=== PATIENT | male | born 1995 | race Caucasian/White ===

== ENCOUNTER 2023-07-25 19:25 | Emergency (ER) | payer MEDICAID, OTHER ==
[~2023-07-25] VITALS: Ht 170.2 cm; Wt 65.8 kg
[2023-07-25 19:40] VITALS: BP 111/66; TEMP 98.4; O2SAT 100
[2023-07-25 21:27] LABS: AMPHETAMINE, URINE NEGATIVE (NEGATIVE); BARBITURATE, URINE NEGATIVE (NEGATIVE); BENZODIAZEPINE, URINE POSITIVE (NEGATIVE); CANNABINOID, URINE POSITIVE (NEGATIVE); COCCAINE, URINE NEGATIVE (NEGATIVE); OPIATE, URINE POSITIVE (NEGATIVE); PHENCYCLIDINE SCREEN,URINE NEGATIVE (NEGATIVE)
[2023-07-25] MEDS ORDERED: NALO4SPR BNOSTRILS (21:37)
== END 2023-07-25 21:30 | disposition home or self-care (01) ==
LOC: ER 19:27
DX: F11.10 Opioid abuse, uncomplicated (principal)